=== PATIENT | female | born 1985 | race American Indian/Alaskan Native ===

== ENCOUNTER 2021-10-29 11:43 | Emergency (ER) | payer MEDICAID, OTHER ==
--- NOTE | 2021-10-29 15:03 | Emergency Department Report ---
ED Female HPI - General Chief complaint: Abdominal Pain Stated complaint: ABD PAIN Time Seen by Provider: 10/29/21 14:59 Source: patient Mode of arrival: Ambulatory Limitations: No Limitations - History of Present Illness Initial comments: 36-year-old -[place] female presents to the emergency room complaining of abdominal pain for 3 weeks. Patient states the pain is worse at night. She states that she works 16-hour days. She is 2 para 1. She complains of nausea and vomiting. States her last menstrual period was August 05, 2021. She denies any dysuria but does admit to urinary frequency and cloudy urine. She denies any urine odor. She complains of nausea and vomiting. She denies any vaginal bleeding vaginal discharge no diarrhea. States that she did a home test and is it positive. Patient states she had a history in the past with a positive home test and negative serum. MD Complaint: pelvic pain Onset/Timin -: week(s) Location: suprapubic Severity scale (0 -10): 4 Quality: cramping Consistency: intermittent Improves with: none Worsens with: none, other Are you Now?: Yes Last Menstrual Period: 08/05/21 EDC: 05/12/22 Associated Symptoms: nausea/vomiting, other (Urinary frequency). denies: vaginal discharge, vaginal bleeding, fever/chills - Related Data Sexually active: Yes : 2 Para: 1 Home Medications Medication Instructions Recorded Confirmed Last Taken Naproxen [Naprosyn TAB] 1 tab PO BID 02/09/14 10/29/21 02/09/14 07:40 Previous Rx's Medication Instructions Recorded Last Taken Type Cephalexin [Keflex] 500 mg PO BID #20 capsule 02/09/14 Unknown Rx HYDROcodone/APAP 5-325 [Colton 1 each PO Q6HR PRN #10 tablet 02/09/14 Unknown Rx 5/325 mg] Ibuprofen [Motrin 600 MG tab] 600 mg PO Q8H PRN #30 tablet 02/09/14 Unknown Rx Nitrofurantoin Patrick/M-Cryst 100 mg PO Q12HR 7 Days #14 capsule 10/29/21 Unknown Rx [Macrobid CAP] Vit-Fe Fumar-FA [ 1 tab PO QDAY #90 tablet 10/29/21 Unknown Rx Vitamin] Allergies Allergy/AdvReac Type Severity Reaction Status Date / Time No Known Allergies Allergy Verified 10/29/21 16:35 ED Review of Systems ROS: Stated complaint: ABD PAIN Other details as noted in HPI Comment: All other systems reviewed and negative ED Past Medical Hx - Past Medical History Previous Medical History?: No - Surgical History Past Surgical History?: No Additional Surgical History: hernia repair - Social History Smoking Status: Current Every Day Smoker Substance Use Type: Alcohol - Medications Home Medications: Home Medications Medication Instructions Recorded Confirmed Last Taken Type Cephalexin [Keflex] 500 mg PO BID #20 capsule 02/09/14 10/29/21 Unknown Rx HYDROcodone/APAP 5-325 [Colton 1 each PO Q6HR PRN #10 tablet 02/09/14 10/29/21 Unknown Rx 5/325 mg] Ibuprofen [Motrin 600 MG tab] 600 mg PO Q8H PRN #30 tablet 02/09/14 10/29/21 Unknown Rx Naproxen [Naprosyn TAB] 1 tab PO BID 02/09/14 10/29/21 02/09/14 07:40 History Nitrofurantoin Patrick/M-Cryst 100 mg PO Q12HR 7 Days #14 capsule 10/29/21 Unknown Rx [Macrobid CAP] Vit-Fe Fumar-FA [ 1 tab PO QDAY #90 tablet 10/29/21 Unknown Rx Vitamin] ED Physical Exam - General Limitations: No Limitations General appearance: alert, in no apparent distress - Head Head exam: Present: atraumatic, normocephalic - Eye Eye exam: Present: normal appearance - ENT ENT exam: Present: mucous membranes moist - Neck Neck exam: Present: normal inspection - Respiratory Respiratory exam: Present: normal lung sounds bilaterally. Absent: respiratory distress - Cardiovascular Cardiovascular Exam: Present: regular rate, normal rhythm. Absent: systolic murmur, diastolic murmur, rubs, gallop - GI/Abdominal GI/Abdominal exam: Present: soft, normal bowel sounds - Extremities Exam Extremities exam: Present: normal inspection - Back Exam Back exam: Present: normal inspection - Neurological Exam Neurological exam: Present: alert, oriented X3 - Psychiatric Psychiatric exam: Present: normal affect, normal mood - Skin Skin exam: Present: warm, dry, intact, normal color. Absent: rash ED Course Vital Signs 10/29/21 10/29/21 10/29/21 14:46 16:30 16:33 Temperature 98.4 F 97.9 F 97.7 F Pulse Rate 87 87 81 Respiratory 16 20 20 Rate Blood Pressure 131/79 Blood Pressure 124/76 131/85 [Left] O2 Sat by Pulse 97 99 99 Oximetry ED Medical Decision Making - Lab Data Result diagrams: 10/29/21 16:46 10/29/21 16:46 Lab Results 10/29/21 10/29/21 10/29/21 Range/Units 15:45 16:46 16:46 WBC 11.8 H (4.5-11.0) K/mm3 RBC 4.12 (3.65-5.03) M/mm3 Hgb 11.8 (10.1-14.3) gm/dl Hct 36.1 (30.3-42.9) % MCV 88 (79-97) fl MCH 29 (28-32) pg MCHC 33 (30-34) % RDW 15.5 H (13.2-15.2) % Plt Count 412 (140-440) K/mm3 Lymph % (Auto) 22.8 (13.4-35.0) % Patrick % (Auto) 5.7 (0.0-7.3) % Eos % (Auto) 3.0 (0.0-4.3) % Baso % (Auto) 0.2 (0.0-1.8) % Lymph # (Auto) 2.7 (1.2-5.4) K/mm3 Patrick # (Auto) 0.7 (0.0-0.8) K/mm3 Eos # (Auto) 0.3 (0.0-0.4) K/mm3 Baso # (Auto) 0.0 (0.0-0.1) K/mm3 Seg Neutrophils % 68.3 (40.0-70.0) % Seg Neutrophils # 8.0 H (1.8-7.7) K/mm3 Sodium 137 (137-145) mmol/L Potassium 3.8 (3.6-5.0) mmol/L Chloride 103.3 (98-107) mmol/L Carbon Dioxide 22 (22-30) mmol/L Anion Gap 16 mmol/L BUN 6 L (7-17) mg/dL Creatinine 0.4 L (0.6-1.2) mg/dL Estimated GFR > 60 ml/min BUN/Creatinine Ratio 15 % Glucose 87 (65-100) mg/dL Calcium 8.7 (8.4-10.2) mg/dL Total Bilirubin < 0.20 (0.1-1.2) mg/dL AST 9 (5-40) units/L ALT 5 L (7-56) units/L Alkaline Phosphatase 77 (35-129) units/L Total Protein 7.1 (6.3-8.2) g/dL Albumin 3.9 (3.9-5) g/dL Albumin/Globulin Ratio 1.2 % HCG, Quant (0-4) mIU/mL Urine Color Yellow (Yellow) Urine Turbidity Cloudy (Clear) Urine pH 6.0 (5.0-7.0) Ur Specific [place] 1.020 (1.003-1.030) Urine Protein <15 mg/dl (Negative) mg/dL Urine Glucose (UA) Neg (Negative) mg/dL Urine Ketones 20 (Negative) mg/dL Urine Blood Neg (Negative) Urine Nitrite Neg (Negative) Urine Bilirubin Neg (Negative) Urine Urobilinogen 2.0 (<2.0) mg/dL Ur Leukocyte Esterase Lg (Negative) Urine WBC (Auto) 48.0 H (0.0-6.0) /HPF Urine RBC (Auto) < 1.0 (0.0-6.0) /HPF U Epithel Cells (Auto) 211.0 H (0-13.0) /HPF Urine Bacteria (Auto) 2+ (Negative) /HPF Calcium Oxalate Crystal 1+ Urine Yeast (Budding) 3+ /HPF 10/29/21 Range/Units 16:46 WBC (4.5-11.0) K/mm3 RBC (3.65-5.03) M/mm3 Hgb (10.1-14.3) gm/dl Hct (30.3-42.9) % MCV (79-97) fl MCH (28-32) pg MCHC (30-34) % RDW (13.2-15.2) % Plt Count (140-440) K/mm3 Lymph % (Auto) (13.4-35.0) % Patrick % (Auto) (0.0-7.3) % Eos % (Auto) (0.0-4.3) % Baso % (Auto) (0.0-1.8) % Lymph # (Auto) (1.2-5.4) K/mm3 Patrick # (Auto) (0.0-0.8) K/mm3 Eos # (Auto) (0.0-0.4) K/mm3 Baso # (Auto) (0.0-0.1) K/mm3 Seg Neutrophils % (40.0-70.0) % Seg Neutrophils # (1.8-7.7) K/mm3 Sodium (137-145) mmol/L Potassium (3.6-5.0) mmol/L Chloride (98-107) mmol/L Carbon Dioxide (22-30) mmol/L Anion Gap mmol/L BUN (7-17) mg/dL Creatinine (0.6-1.2) mg/dL Estimated GFR ml/min BUN/Creatinine Ratio % Glucose (65-100) mg/dL Calcium (8.4-10.2) mg/dL Total Bilirubin (0.1-1.2) mg/dL AST (5-40) units/L ALT (7-56) units/L Alkaline Phosphatase (35-129) units/L Total Protein (6.3-8.2) g/dL Albumin (3.9-5) g/dL Albumin/Globulin Ratio % HCG, Quant 98651 H (0-4) mIU/mL Urine Color (Yellow) Urine Turbidity (Clear) Urine pH (5.0-7.0) Ur Specific [place] (1.003-1.030) Urine Protein (Negative) mg/dL Urine Glucose (UA) (Negative) mg/dL Urine Ketones (Negative) mg/dL Urine Blood (Negative) Urine Nitrite (Negative) Urine Bilirubin (Negative) Urine Urobilinogen (<2.0) mg/dL Ur Leukocyte Esterase (Negative) Urine WBC (Auto) (0.0-6.0) /HPF Urine RBC (Auto) (0.0-6.0) /HPF U Epithel Cells (Auto) (0-13.0) /HPF Urine Bacteria (Auto) (Negative) /HPF Calcium Oxalate Crystal Urine Yeast (Budding) /HPF - Radiology Data Radiology results: report reviewed [facility] [address] [place] [address] Ultrasound Report Signed Patient: BRIAN FORMAN MR#: [id number] : 1985 Acct:[id number] Age/Sex: 36 / F ADM Date: 10/29/21 Loc: ED Attending Dr: Ordering Physician: KUNAL HOOD Date of Service: 10/29/21 Procedure(s): US OB transvaginal Accession Number(s): [id number] cc: KUNAL HOOD Transvaginal and transabdominal ultrasound INDICATION: FINDINGS: Single live intrauterine . Gestational sac measures 5.8 mm measuring 11 weeks 6 days. Davey-rump length 5.25 mm measures 11.6 days. pole yolk sac and body and limb movements. Minimal free fluid. heart rate 1 61 bpm. Left ovary appears normal. Right ovary is not well seen. Uterus measures 7.3 x 7.3 x 10.0 cm. IMPRESSION: Single live intrauterine with ultrasound age 11 weeks 6 days Signer Name: Ramiro Castanon MD Signed: 10/29/2021 7:21 PM Workstation Name: [id number] Transcribed By: CW Dictated By: SEBASTIAN CASTANON MD Electronically Authenticated By: SEBASTIAN CASTANON MD Signed Date/Time: 10/29/211920 DD/ 19 TD/TT: - Medical Decision Making 36-year-old -[place] female presents to the emergency room complaining of abdominal pain for 3 weeks. Patient states the pain is worse at night. She states that she works 16-hour days. She is 2 para 1. She complains of nausea and vomiting. States her last menstrual period was August 05, 2021. She denies any dysuria but does admit to urinary frequency and cloudy urine. She denies any urine odor. She denies any vaginal bleeding vaginal discharge no diarrhea. States that she did a home test and is it positive. Patient states she had a history in the past with a positive home test and negative serum. Urinalysis CBC CMP hCG serum Critical care attestation.: If time is entered above; I have spent that time in minutes in the direct care of this critically ill patient, excluding procedure time. ED Disposition Clinical Impression: UTI (urinary tract infection) Qualifiers: Weeks of gestation: 12 weeks Qualified Code(s): Z3A.12 - 12 weeks gestation of Disposition: HOME / SELF CARE / HOMELESS Is pt being admited?: No Does the pt Need Aspirin: No Condition: Stable Instructions: Abdominal Pain (ED), and Urinary Tract Infection, Second Trimester of Additional Instructions: Ultrasound shows you are 11 weeks and 6 days . Also your urine shows that you have a urinary tract infection. I like for you to complete your antibiotics Tylenol only for pain. Start your vitamins and follow-up with the SERVICE DESK TECHNICIAN. Prescriptions: Nitrofurantoin Patrick/M-Cryst [Macrobid CAP] 100 mg PO Q12HR 7 Days #14 capsule Vit-Fe Fumar-FA [ Vitamin] 1 tab PO QDAY #90 tablet Referrals: [facility] [Primary Care Provider] - 3-5 Days [facility] [Provider Group] - 3-5 Days [facility] [Provider Group] - 3-5 Days [facility] [Provider Group] - 3-5 Days Forms: Work/School Release Form(ED) Time of Disposition: 19:29
[2021-10-29] MEDS ORDERED: ONDANSETRON 4 MG ODT TAB PO ONE (16:08)
[2021-10-29 16:21] LABS: Bacteria,Urine 2+ /HPF (Negative); Bilirubin,Urine NEG (Negative); Blood,Urine NEG (Negative); Calcium Oxalate Crystals,Urine 1+; Color,Urine Yellow (Yellow); Protein,Urine <15 mg/dL mg/dL (Negative)
[2021-10-29 16:37] LABS: RBC,Urine < 1.0 /HPF (0.0-6.0)
[2021-10-29 17:20] LABS: Basophils % (Auto) 0.2 % (0.0-1.8); Eosinophils # (Auto) 0.3 K/mm3 (0.0-0.4); Hematocrit 36.1 % (30.3-42.9); Hemoglobin 11.8 gm/dl (10.1-14.3); Lymphocytes # (Auto) 2.7 K/mm3 (1.2-5.4); Lymphocytes % (Auto) 22.8 % (13.4-35.0); Mean Corpuscular HGB Conc 33 % (30-34); Mean Corpuscular Volume 88 fl (79-97); Monocytes # (Auto) 0.7 K/mm3 (0.0-0.8); Monocytes % (Auto) 5.7 % (0.0-7.3); Platelet Count 412 K/mm3 (140-440); Red Blood Count 4.12 M/mm3 (3.65-5.03); Red Cell Distribution Width 15.5 % (13.2-15.2)
[2021-10-29 17:42] LABS: Alanine Aminotransferase 5 units/L (7-56); Albumin 3.9 g/dL (3.9-5); Blood Urea Nitrogen 6 mg/dL (7-17); Calcium 8.7 mg/dL (8.4-10.2); Hemolysis Index 0
[2021-10-29 17:43] LABS: BUN/Creatinine Ratio 15
--- NOTE | 2021-10-29 19:25 | Ultrasound Report ---
Transvaginal and transabdominal ultrasound INDICATION: FINDINGS: Single live intrauterine . Gestational sac measures 5.8 mm measuring 11 weeks 6 da ys. Ranson-rump length 5.25 mm measures 11.6 days. pole yolk sac and body and limb movements. Mi nimal free fluid. heart rate 1 61 bpm. Left ovary appears normal. Right ovary is not well seen. Uterus measures 7.3 x 7.3 x 10.0 cm. IMPRESSION: Single live intrauterine with ultrasound age 11 weeks 6 days Signer Name: Ramiro Castanon MD Signed: 10/29/2021 7:21 PM Workstation Name: [id number]
[2021-10-29 19:44] VITALS: BP 124/68
== END 2021-10-29 19:44 | disposition home or self-care (01) ==
LOC: ED 11:43
DX: O23.41 Unspecified infection of urinary tract in pregnancy, first trimester (principal); N39.0 Urinary tract infection, site not specified; F17.200 Nicotine dependence, unspecified, uncomplicated; O21.9 Vomiting of pregnancy, unspecified; Z3A.11 11 weeks gestation of pregnancy; Z72.89 Other problems related to lifestyle; Z79.899 Other long term (current) drug therapy
CPT/HCPCS: 36415; 76801; 76817; 80053; 81001; 84702; 85025; 87086; 99284; J3490; Q0162

== ENCOUNTER 2022-04-21 19:50 | Inpatient (IN) | payer MEDICAID, OTHER ==
[2022-04-21] MEDS ORDERED: AMPICILLIN/NS 2 GM/100 ML 2 GM/100 ML BAG IV ONE (21:01)
[2022-04-21] MEDS ORDERED: ACETAMINOPHEN 325 MG TAB PO PRN (21:01)
[2022-04-21] MEDS ORDERED: CARBOPROST TROMETHAMINE 250 MCG/1 ML INJ IM PRN (21:01)
[2022-04-21] MEDS ORDERED: miSOPROStol 200 MCG TAB PR PRN (21:01)
[2022-04-21] MEDS ORDERED: BUTORPHANOL 2 MG/1 ML INJ IV PRN (21:01)
[2022-04-21] MEDS ORDERED: OXYTOCIN 10 UNIT/1 ML INJ IM PRN (21:01)
[2022-04-21] MEDS ORDERED: ONDANSETRON 4 MG/2 ML INJ IV PRN (21:01)
[2022-04-21] MEDS ORDERED: METHYLERGONOVINE MALEATE 0.2 MG/ML VIAL IM PRN (21:01)
[2022-04-21] MEDS ORDERED: MINERAL OIL 30 ML ORAL LIQD PO PRN (21:01)
[2022-04-21] MEDS ORDERED: ePHEDrine SULFATE 50 MG/1 ML INJ IV PRN ×2 (21:01→22:08)
[2022-04-21] MEDS ORDERED: LIDOCAINE (2%) 20 MG/1 ML VIAL 20 ML MDV INFILTRATI ONE (21:01)
[2022-04-21] MEDS ORDERED: NALOXONE 0.4 MG/1 ML INJ IV PRN ×2 (21:01→22:08)
[2022-04-21] MEDS ORDERED: TERBUTALINE 1 MG/1 ML INJ SUB-Q PRN (21:01)
[2022-04-21] MEDS ORDERED: PROMETHAZINE 25 MG TAB PO PRN (21:01)
[2022-04-21] MEDS ORDERED: fentaNYL 100 MCG/2 ML INJ IV PRN (21:01)
[2022-04-21] MEDS ORDERED: LOPERAMIDE 2 MG CAP PO PRN (21:01)
[2022-04-21] MEDS ORDERED: LACTATED RINGERS 1,000 ML IV SCH (21:15)
--- NOTE | 2022-04-21 21:15 | History and Physical Report ---
History of Present Illness Date of examination: 04/21/22 Date of admission: 04/21/2022 Chief complaint: My water broke. History of present illness: Pt is a 36 y.o. @ 37 wks by EDC of 05/12/2022 who presented to triage with c/p SROM at 1900 for clear fluid. She has had limited care this . This EDC was given to her by the provider that she had one visit with. EDC is based off a third trimester u/s at her first visit. She has admitted that her first PNV was @ 35 wks and she was to [place] [facility] She does not know her GBS status. She had a visit scheduled on 04/24. States that she has had no complications this . Her last delivery was in 2008 ,was vaginal, with no complications. Past History Past Medical History: no pertinent history Past Surgical History: no surgical history Family/Genetic History: none Social history: single, other (Limited PNC. ) - Obstetrical History Expected Date of Delivery: 05/12/22 Actual Gestation: 37 Week(s) 0 Day(s) : 2 Para: 1 Hx # Term Pregnancies: 1 Number of Pregnancies: 0 Spontaneous Abortions: 0 Induced : 0 Number of Living Children: 0 #1 year: 2,009 Birthweight: 6 lb 14 oz Method of Delivery: Vaginal Gestational age at delivery: 39.2 Complications: none Medications and Allergies Allergies Allergy/AdvReac Type Severity Reaction Status Date / Time No Known Allergies Allergy Verified 10/29/21 16:35 Home Medications Medication Instructions Recorded Confirmed Last Taken Type Cephalexin [Keflex] 500 mg PO BID #20 capsule 02/09/14 10/29/21 Unknown Rx HYDROcodone/APAP 5-325 [Dafter 1 each PO Q6HR PRN #10 tablet 02/09/14 10/29/21 Unknown Rx 5/325 mg] Ibuprofen [Motrin 600 MG tab] 600 mg PO Q8H PRN #30 tablet 02/09/14 10/29/21 Unknown Rx Naproxen [Naprosyn TAB] 1 tab PO BID 02/09/14 10/29/21 02/09/14 07:40 History Nitrofurantoin Bartholomew/M-Cryst 100 mg PO Q12HR 7 Days #14 capsule 10/29/21 Unknown Rx [Macrobid CAP] Vit-Fe Fumar-FA [ 1 tab PO QDAY #90 tablet 10/29/21 Unknown Rx Vitamin] Active Meds: Active Medications Acetaminophen (Acetaminophen 325 Mg Tab) 650 mg PO Q4H PRN PRN Reason: Pain, Mild (1-3) Butorphanol Tartrate (Butorphanol 2 Mg/1 Ml Inj) 1 mg IV Q2H PRN PRN Reason: Pain, Moderate(4-6) LABOR PAIN Carboprost Tromethamine (Carboprost Tromethamine 250 Mcg/1 Ml Inj) 250 mcg IM ONCE PRN PRN Reason: Uterine Bleeding Ephedrine Sulfate (Ephedrine Sulfate 50 Mg/1 Ml Inj) 10 mg IV Q2M PRN PRN Reason: Hypotension Fentanyl (Fentanyl 100 Mcg/2 Ml Inj) 100 mcg IV Q2H PRN PRN Reason: Pain,Severe (7-10) LABOR PAIN Oxytocin/Sodium Chloride (Pitocin/Ns 30 Unit/500ml) 30 units in 500 mls @ 4 mls/hr IV TITR PAULA; Protocol Lactated Ringer's (Lactated Ringers) 1,000 mls @ 125 mls/hr IV DIRECT PAULA Oxytocin/Sodium Chloride (Pitocin/Ns 30 Unit/500ml) 30 units in 500 mls @ 40 mls/hr IV TITR PAULA; Protocol Ampicillin Sodium (Ampicillin/Ns 2 Gm/100 Ml) 2 gm in 100 mls @ 100 mls/hr IV ONCE ONE; Protocol Stop: 04/21/22 22:00 Loperamide HCl (Loperamide 2 Mg Cap) 2 mg PO ONCE PRN PRN Reason: give with Hemabate Methylergonovine Maleate (Methylergonovine Maleate 0.2 Mg/Ml Vial) 0.2 mg IM ONCE PRN PRN Reason: Uterine Bleeding Mineral Oil (Mineral Oil 30 Ml Oral Liqd) 30 ml PO QHS PRN PRN Reason: Constipation Misoprostol (Misoprostol 200 Mcg Tab) 800 mcg OK ONCE PRN PRN Reason: Uterine Bleeding Naloxone HCl (Naloxone 0.4 Mg/1 Ml Inj) 0.1 mg IV Q2MIN PRN PRN Reason: Res Rate </= 8 or 02 SAT < 92% Ondansetron HCl (Ondansetron 4 Mg/2 Ml Inj) 4 mg IV Q8H PRN PRN Reason: Nausea And Vomiting Oxytocin (Oxytocin 10 Unit/1 Ml Inj) 10 unit IM ONCE PRN PRN Reason: Uterine Bleeding Promethazine HCl (Promethazine 25 Mg Tab) 25 mg PO Q6H PRN PRN Reason: Nausea And Vomiting Terbutaline Sulfate (Terbutaline 1 Mg/1 Ml Inj) 0.25 mg SUB-Q ONCE PRN PRN Reason: Hyperstimulation/Hypertonicity Review of Systems All systems: negative - Vital Signs Vital signs: Vital Signs Pulse Pulse Ox 74 100 04/21/22 19:58 04/21/22 19:58 Temp Pulse Resp BP Pulse Ox 98.3 F 75 14 160/70 100 04/21/22 20:05 04/21/22 21:13 04/21/22 20:05 04/21/22 20:59 04/21/22 21:13 Elevated blood pressures noted. Range 140's-160's/70's. Pt denies LOPES, blurred vision, spots before her eyes, chest pain, upper abdominal pain, and shortness of breath. - Physical Exam Breasts: Positive: deferred Cardiovascular: Regular rate Lungs: Positive: Normal air movement Abdomen: Positive: normal appearance, soft Genitourinary (Female): Positive: normal external genitalia, normal perenium Vulva: both: normal Vagina: Positive: normal moisture Uterus: Positive: enlarged (Obese abdomen.) Extremities: Positive: normal - Obstetrical FHR: category 1 Uterine Contraction Monitor Mode: External Cervical Dilatation: 5 (Small amount of clear fluid seen on peripad underneath patient. ) Cervical Effacement Percentage: 90 station: 0 Uterine Contraction Pattern: Regular Uterine Tone Measurement Phase: Resting Uterine Contraction Intensity: Moderate Results Result Diagrams: 04/21/22 20:34 04/21/22 20:26 All other labs normal. labs ordered on admission. Assessment and Plan A: 36 y.o. @ 37 wks with with SROM, Limited PNC, elevated blood pressures on admission. - Patient Problems (1) Elevated blood pressure reading without diagnosis of hypertension Current Visit: Yes Status: Acute Plan to address problem: Consulted with Dr. Andino. Pre eclampsia labs ordered. Will continue to monitor blood pressures during admission. (2) SROM (spontaneous rupture of membranes) Current Visit: Yes Status: Acute Plan to address problem: Continue to monitor maternal temperature. Limit vaginal exams. (3) 37 or more weeks gestation of Current Visit: Yes Status: Acute Plan to address problem: Continuous EFM. (4) Limited care in third trimester Current Visit: Yes Status: Acute Plan to address problem: Admit to labor and delivery. Initiate IV. Draw labs. Send UDS. Augmentation of labor: Pitocin per protocol. Pain management: IV mediation and epidural, if and when patient desires. GBS: Unknown. - Ampicillin ordered.
[2022-04-21 21:31] LABS: Hematocrit 32.9 % (30.3-42.9); Hemoglobin 11.3 gm/dl (10.1-14.3); Mean Corpuscular HGB Conc 34 % (30-34); Mean Corpuscular Volume 86 fl (79-97); Platelet Count 376 K/mm3 (140-440); Red Blood Count 3.82 M/mm3 (3.65-5.03)
[2022-04-21 21:53] LABS: Uric Acid 3.8 mg/dL (3.5-7.6)
[2022-04-21 21:56] LABS: Alanine Aminotransferase < 5 units/L (7-56)
[2022-04-21] MEDS ORDERED: OXYTOCIN DRIP 30 UNITS/500 ML BAG IV SCH ×2 (22:00)
[2022-04-21 22:03] LABS: Hepatitis C Virus Antibody Non-Reactive (NonReactive)
[2022-04-21] MEDS ORDERED: LIDOCAINE MPF (2%) 20 MG/1 ML VIAL 5 ML ONE (22:05)
--- NOTE | 2022-04-21 22:28 | Anesthesia Consultation ---
Anesthesia Consult and Med Hx - Airway Anesthetic Teeth Evaluation: Poor ROM Head & Neck: Adequate Mental/Hyoid Distance: Adequate Mallampati Class: Class II Intubation Access Assessment: Probably Good - Pulmonary Exam CTA: Yes - Cardiac Exam Cardiac Exam: RRR - Pre-Operative Health Status ASA Pre-Surgery Classification: ASA2 Proposed Anesthetic Plan: Epidural - Pulmonary Hx Asthma: No - Cardiovascular System Hx Hypertension: No - Central Nervous System Hx Seizures: No Hx Psychiatric Problems: No - Endocrine Hx Renal Disease: No Hx Hypothyroidism: No Hx Hyperthyroidism: No - Hematic Hx Anemia: No Hx Sickle Cell Disease: No - Other Systems Hx Alcohol Use: No
--- NOTE | 2022-04-21 22:31 | Progress Note ---
Regional Anesthesia Block - Regional Anesthesia Block Start Time: 22:18 Stop Time: 22:22 Performed By:: BEAU MAZA Procedure: L34 prep and drape nsf, sterile dressing. CHANNING saline and air, 6cm, cath to 11 cm, neg test dose 1.5 ml lido 1.5% with epi, sterile dressing, enrique well. Loading dose 5 ml Lid
[2022-04-21] MEDS ORDERED: fentaNYL-BUPIV 2 MCG/ML-0.125% 200 MCG/100 ML BAG EPIDURAL SCH (23:00)
[2022-04-21 23:05] LABS: Bilirubin,Urine NEG (Negative); Blood,Urine NEG (Negative); Color,Urine Yellow (Yellow); Urobilinogen,Urine < 2.0 mg/dL (<2.0)
[2022-04-21 23:07] LABS: Mucus,Urine 3+ /HPF
[2022-04-21 23:13] LABS: Amphetamine Screen,Urine PRESUMPTIVE NEGATIVE; Benzodiazepines Screen,Urine PRESUMPTIVE NEGATIVE; Cannabinoid Screen,Urine PRESUMPTIVE POSITIVE; Cocaine Screen,Urine PRESUMPTIVE NEGATIVE; Methadone Screen,Urine PRESUMPTIVE NEGATIVE; Opiate Screen,Urine PRESUMPTIVE NEGATIVE
--- NOTE | 2022-04-21 23:27 | Procedure Note ---
OB Delivery Note - Delivery Date of Delivery: 04/21/22 Plate Worker: DANIELLE COREAS Estimated blood loss: 100cc - Vaginal Delivery presentation: vertex Delivery position: OA Intrapartum events: preeclampsia (Pt aware magnesium needed after delivery. ), other(please specify) (Limited care, + marijuana) Delivery induction: none Delivery monitor: external FHT, external uterine Route of delivery: Delivery placenta: spontaneous Delivery cord: 3 umbilical vessels Episiotomy: none Delivery laceration: none Anesthesia: epidural Delivery comments: of viable male infant. Infant to mother's abdomen for skin to skin. Cord cut and clamped. Infant handed to RN for evaluation at [facility]. Spontaneous delivery of placenta, intact, complete, 3 vessels noted. Placenta to pathology d/t pre eclampsia. Perineum and vaginal inspected, no lacerations noted. Fundus firm, minimal bleeding noted. QBL 100ml. Apgars 8,9. Infant weight, 6-2. Sponges and instruments counted with RN X2 and correct X2. Pt with diagnosis of pre eclampsia after delivery d/t Rubin Cather left in place. Magnesium infusion to be started @ 2gms with 4 gm bolus. RN taking care of patient aware. - Infant A at 1 minute: 8 at 5 minutes: 9 Infant Gender: Male ("[place]", 6-2)
--- NOTE | 2022-04-22 | Event Note ---
Date: 04/21/22 Pt with elevated blood pressures before and during delivery. Not pain related as patient was comfortable with epidural. Consulted with Dr. Andino. Will initiate magnesium infusion. Explained diagnosis of pre eclampsia, increased risk for seizures after delivery and why magnesium infusion needed. Patient verbalized understanding and agrees to magnesium infusion. Orders placed for magnesium infusion, Rubin Catheter placement, monitoring of blood pressures, and strict I&O's. RN taking care of patient and supervisor in charge aware of this plan of care.
[2022-04-22] MEDS ORDERED: WITCH HAZEL/ GLYCERIN PAD TP PRN (00:01)
[2022-04-22] MEDS ORDERED: miSOPROStol 100 MCG TAB PR PRN (00:01)
[2022-04-22] MEDS ORDERED: PROMETHAZINE 25 MG TAB PO PRN (00:01)
[2022-04-22] MEDS ORDERED: diphenhydrAMINE 25 MG CAP PO PRN (00:01)
[2022-04-22] MEDS ORDERED: oxyCODONE /ACETAMINOPHEN 5-325MG TAB PO PRN (00:01)
[2022-04-22] MEDS ORDERED: ACETAMINOPHEN 500 MG TAB PO PRN (00:01)
[2022-04-22] MEDS ORDERED: BENZOCAINE/MENTHOL 20/0.5% TOP SPRAY 56 GM TP PRN (00:01)
[2022-04-22] MEDS ORDERED: LANOLIN/ZINC/DIMETHICONE (LANSINOH) 7 GM TP PRN ×2 (00:01)
[2022-04-22] MEDS ORDERED: OXYTOCIN DRIP 30 UNITS/500 ML BAG IV SCH ×2 (00:01)
[2022-04-22] MEDS ORDERED: PROMETHAZINE 25 MG RECT SUPP PR PRN (00:01)
[2022-04-22] MEDS ORDERED: MAGNESIUM SULFATE 4 GM/100 ML BAG IV ONE (00:01)
[2022-04-22] MEDS ORDERED: ONDANSETRON 4 MG/2 ML INJ IV PRN (00:01)
[2022-04-22] MEDS ORDERED: MAGNESIUM HYDROXIDE (MOM) ORAL LIQD UDC PO PRN (00:01)
[2022-04-22] MEDS: LACTATED RINGERS 1,000 ML IV SCH ×2 (00:23→14:16)
[2022-04-22] MEDS: MAGNESIUM SULFATE 40GM/1000ML 40 GM/1,000 ML BAG IV SCH ×2 (00:56→20:41)
[2022-04-22] MEDS ORDERED: CALCIUM GLUCONATE 1000 MG/10 ML INJ IV ONE (01:01)
[2022-04-22 01:49] LABS: Basophils % (Manual) 0 % (0.0-1.8); Monocytes % (Manual) 0 % (0.0-7.3); Total Cells Counted 100
[2022-04-22 01:50] LABS: Platelet Estimate Consistent w Auto; RBC Morphology Normal
[2022-04-22] MEDS: IBUPROFEN 800 MG TAB PO SCH ×3 (02:05→18:38)
[2022-04-22] MEDS ORDERED: TETANUS,DIPH,PERTUSS(ACELL) VACCINE 0.5 ML SYRINGE IM ONE (06:00)
[2022-04-22] MEDS ORDERED: miSOPROStol 200 MCG TAB PR PRN (07:00)
[2022-04-22] MEDS: PRENATAL VIT27-FE FUMARATE-FOLIC ACID VIT TAB PO SCH (10:46)
[2022-04-22] MEDS: DOCUSATE SODIUM 100 MG CAP PO SCH ×2 (10:46→22:02)
--- NOTE | 2022-04-22 12:50 | Progress Note ---
Assessment and Plan - Patient Problems (1) 37 or more weeks gestation of Current Visit: Yes Status: Resolved (2) Elevated blood pressure reading without diagnosis of hypertension Current Visit: Yes Status: Acute (3) Limited care in third trimester Current Visit: Yes Status: Acute (4) Pre-eclampsia affecting puerperium Current Visit: Yes Status: Acute Plan to address problem: -Continue magnesium sulfate Continue labetalol p.o. (5) (normal spontaneous vaginal delivery) Current Visit: Yes Status: Acute Plan to address problem: Routine care. Plan for DC tomorrow if blood pressures normal after magnesium is discontinued. Subjective - Subjective Date of service: 04/22/22 Principal diagnosis: PPD#1 s/p 2) Pre E Interval history: Patient doing well without complaints today. Patient denies any headaches or blurry vision shortness of breath or any signs and symptoms of preeclampsia. Plan of care was discussed with patient including continue magnesium sulfate drip for approximately 24 hours and upon discontinuing the magnesium sulfate monitoring for blood pressure control. I discussed with patient her blood pressure medications may have to be adjusted depending upon if the blood pressures increase after magnesium is discontinued all questions were addressed and answered patient expressed understanding. Patient reports: appetite normal, voiding normally, pain well controlled, no dizzy ambulation [place]: doing well Objective - Vital Signs Latest vital signs: Vital Signs Temp Pulse Resp BP BP Pulse Ox Pulse Ox 04/22/22 12:45 85 100 04/22/22 12:40 84 100 04/22/22 12:35 83 100 04/22/22 12:30 83 100 04/22/22 12:25 80 100 04/22/22 12:23 88 146/78 04/22/22 12:20 89 99 04/22/22 12:15 79 100 04/22/22 12:10 78 100 04/22/22 12:05 86 100 04/22/22 12:00 98.2 F 80 18 100 04/22/22 11:55 80 95 04/22/22 11:53 75 134/75 04/22/22 11:50 81 100 04/22/22 11:45 80 100 04/22/22 11:41 85 94 04/22/22 11:40 76 100 04/22/22 11:35 79 100 04/22/22 11:30 90 100 04/22/22 11:25 81 100 04/22/22 11:23 86 132/74 04/22/22 11:20 86 100 04/22/22 11:15 87 100 04/22/22 11:10 84 100 04/22/22 11:05 91 H 100 04/22/22 11:00 87 100 04/22/22 10:55 82 100 04/22/22 10:53 81 143/79 04/22/22 10:50 89 100 04/22/22 10:46 86 147/83 04/22/22 10:45 87 100 04/22/22 10:40 93 H 100 04/22/22 10:35 84 100 04/22/22 10:30 85 100 04/22/22 10:25 85 100 04/22/22 10:23 85 147/83 04/22/22 10:20 87 100 04/22/22 10:15 92 H 100 04/22/22 10:10 86 100 04/22/22 10:05 88 100 04/22/22 10:00 89 100 04/22/22 09:55 84 100 04/22/22 09:53 82 142/101 04/22/22 09:50 85 100 04/22/22 09:45 91 H 100 04/22/22 09:40 80 100 04/22/22 09:35 87 100 04/22/22 09:30 91 H 100 04/22/22 09:25 86 100 04/22/22 09:23 82 146/82 04/22/22 09:20 84 100 04/22/22 09:15 78 100 04/22/22 09:10 83 100 04/22/22 09:05 86 100 04/22/22 09:00 80 100 04/22/22 08:55 80 100 04/22/22 08:53 80 157/76 04/22/22 08:50 90 100 04/22/22 08:45 90 100 04/22/22 08:40 80 100 04/22/22 08:35 81 100 04/22/22 08:30 91 H 100 100 04/22/22 08:29 98.0 F 18 04/22/22 08:25 84 100 04/22/22 08:23 83 126/66 04/22/22 08:20 82 100 04/22/22 08:15 80 100 04/22/22 08:10 88 99 04/22/22 08:05 85 100 04/22/22 08:00 78 100 04/22/22 07:55 81 100 04/22/22 07:53 72 147/77 04/22/22 07:50 75 100 04/22/22 07:45 84 100 04/22/22 07:40 82 100 04/22/22 07:35 81 100 04/22/22 07:30 84 100 04/22/22 07:25 85 100 04/22/22 07:23 79 137/72 04/22/22 07:20 79 100 04/22/22 07:15 82 100 04/22/22 07:10 85 100 04/22/22 07:05 85 100 04/22/22 07:00 84 100 04/22/22 06:57 89 87 04/22/22 06:55 81 100 04/22/22 06:53 76 141/86 04/22/22 06:50 75 100 04/22/22 06:45 82 100 04/22/22 06:40 88 100 04/22/22 06:35 84 100 04/22/22 06:30 82 99 04/22/22 06:29 91 H 88 04/22/22 06:25 78 100 04/22/22 06:20 77 100 04/22/22 06:15 76 100 04/22/22 06:12 74 150/85 04/22/22 06:10 79 100 04/22/22 06:05 76 100 04/22/22 06:02 72 91 04/22/22 06:00 75 100 04/22/22 05:57 74 145/92 04/22/22 05:55 71 100 04/22/22 05:50 76 100 04/22/22 05:45 88 100 04/22/22 05:42 83 140/82 04/22/22 05:40 86 100 04/22/22 05:35 89 99 04/22/22 05:32 97.6 F 17 04/22/22 05:30 83 100 04/22/22 05:27 86 141/78 04/22/22 05:25 81 100 04/22/22 05:20 77 100 04/22/22 05:15 81 100 04/22/22 05:12 82 143/75 04/22/22 05:10 85 100 04/22/22 05:05 80 100 06 05:00 83 100 04/22/22 04:57 86 132/71 04/22/22 04:55 84 100 04/22/22 04:50 95 H 100 04/22/22 04:45 83 100 04/22/22 04:42 83 126/75 04/22/22 04:40 85 99 06 04:35 76 100 04/22/22 04:30 92 H 100 04/22/22 04:27 90 131/78 04/22/22 04:25 90 99 04/22/22 04:20 90 99 04/22/22 04:15 84 100 04/22/22 04:12 94 H 134/66 04/22/22 04:10 87 99 04/22/22 04:05 82 100 04/22/22 04:00 87 100 04/22/22 03:57 88 139/71 04/22/22 03:55 88 100 04/22/22 03:50 89 100 04/22/22 03:45 88 100 04/22/22 03:42 88 133/65 04/22/22 03:40 91 H 100 04/22/22 03:35 86 137/65 100 04/22/22 03:30 87 99 04/22/22 03:27 88 167/73 04/22/22 03:25 86 100 04/22/22 03:20 84 100 04/22/22 03:15 84 100 04/22/22 03:12 83 136/63 04/22/22 03:10 81 99 04/22/22 03:05 85 99 04/22/22 03:00 82 99 04/22/22 02:57 79 134/70 04/22/22 02:55 86 100 04/22/22 02:50 86 100 04/22/22 02:45 79 100 04/22/22 02:42 85 129/67 04/22/22 02:40 72 100 04/22/22 02:35 83 100 04/22/22 02:30 77 100 06 02:27 75 129/68 04/22/22 02:25 78 100 04/22/22 02:20 72 99 04/22/22 02:15 80 100 04/22/22 02:12 75 140/72 04/22/22 02:10 80 100 04/22/22 02:05 79 100 04/22/22 02:00 79 100 04/22/22 01:57 75 141/66 04/22/22 01:55 77 100 04/22/22 01:50 81 100 04/22/22 01:45 79 100 04/22/22 01:42 74 149/77 04/22/22 01:40 87 100 04/22/22 01:35 77 100 04/22/22 01:30 91 H 100 04/22/22 01:28 89 87 04/22/22 01:27 76 140/68 04/22/22 01:25 84 100 04/22/22 01:20 84 100 04/22/22 01:15 81 100 04/22/22 01:13 81 137/82 04/22/22 01:10 75 100 04/22/22 01:05 88 100 04/22/22 01:00 80 100 04/22/22 00:55 75 145/73 100 04/22/22 00:52 77 143/74 04/22/22 00:51 75 17 143/74 100 04/22/22 00:50 78 100 04/22/22 00:45 82 19 141/72 141/72 100 04/22/22 00:41 80 151/75 04/22/22 00:40 76 18 151/75 100 04/22/22 00:35 72 100 04/22/22 00:33 62 149/70 04/22/22 00:30 65 100 04/22/22 00:25 98.2 F 75 18 152/78 100 04/22/22 00:23 69 152/78 04/22/22 00:22 59 L 93 04/22/22 00:20 64 100 04/22/22 00:15 72 100 04/22/22 00:13 64 154/80 04/22/22 00:10 66 93 04/22/22 00:07 83 77 L 04/22/22 00:05 78 100 04/22/22 00:03 73 163/105 04/22/22 00:00 62 100 04/21/22 23:55 83 99 04/21/22 23:53 94 H 143/76 04/21/22 23:52 77 76 L 04/21/22 23:50 73 100 04/21/22 23:46 83 85 04/21/22 23:45 72 100 04/21/22 23:43 77 139/72 04/21/22 23:40 77 100 04/21/22 23:35 79 100 04/21/22 23:34 87 94 04/21/22 23:33 69 140/72 04/21/22 23:30 73 100 04/21/22 23:25 73 100 04/21/22 23:22 70 134/66 04/21/22 23:20 65 100 04/21/22 23:19 61 137/64 0 L 04/21/22 23:17 75 140/75 04/21/22 23:14 72 100 04/21/22 23:13 64 155/66 04/21/22 23:11 68 151/62 04/21/22 23:08 78 100 04/21/22 23:07 95 H 174/137 04/21/22 23:03 82 100 04/21/22 22:58 68 153/72 100 04/21/22 22:55 95 H 140/100 04/21/22 22:53 68 100 04/21/22 22:52 67 146/67 0 L 04/21/22 22:49 67 147/67 04/21/22 22:48 71 100 04/21/22 22:46 71 161/70 04/21/22 22:43 67 160/72 100 04/21/22 22:41 89 152/85 04/21/22 22:38 70 100 04/21/22 22:37 73 151/74 70 L 04/21/22 22:34 78 148/77 04/21/22 22:33 79 100 04/21/22 22:31 93 H 156/84 04/21/22 22:28 72 155/73 100 04/21/22 22:25 68 158/74 93 04/21/22 22:23 96 H 100 04/21/22 22:22 75 161/98 04/21/22 22:19 88 148/94 04/21/22 22:18 95 H 100 04/21/22 22:13 102 H 100 04/21/22 22:09 69 93 04/21/22 22:08 76 100 04/21/22 22:03 81 100 04/21/22 21:58 65 100 04/21/22 21:56 69 183/81 04/21/22 21:54 64 81 L 04/21/22 21:53 62 100 04/21/22 21:48 70 89 04/21/22 21:43 68 100 04/21/22 21:38 69 100 04/21/22 21:33 71 100 04/21/22 21:28 73 100 04/21/22 21:23 65 100 04/21/22 21:20 76 133/76 04/21/22 21:19 83 77 L 04/21/22 21:18 64 100 04/21/22 21:13 75 100 04/21/22 21:12 72 87 04/21/22 21:08 77 98 04/21/22 21:03 72 83 L 04/21/22 20:59 79 160/70 04/21/22 20:58 71 95 04/21/22 20:57 70 93 04/21/22 20:53 71 100 04/21/22 20:48 83 97 04/21/22 20:46 96 H 85 04/21/22 20:43 103 H 100 04/21/22 20:38 66 100 04/21/22 20:33 81 100 04/21/22 20:28 82 100 04/21/22 20:23 87 100 04/21/22 20:18 80 142/75 99 04/21/22 20:17 70 163/77 04/21/22 20:13 69 100 04/21/22 20:08 88 99 04/21/22 20:05 98.3 F 14 100 04/21/22 20:03 103 H 99 04/21/22 19:58 74 100 Intake and Output 04/21/22 04/22/22 04/22/22 22:59 06:59 14:59 Output Total 1675 2700 Balance -1675 -2700 Output: Urine 1675 2700 Indwelling Catheter 1676 2200 Uretheral (Rubin) 500 Other: Total, Output Amount 525 350 Weight 112.037 kg Estimated Blood Loss 100 - Exam Breasts: Present: deferred Lungs: Present: Normal air movement Abdomen: Present: normal appearance, soft. Absent: distention, tenderness, guarding Uterus: Present: normal, firm. Absent: tenderness Extremities: Present: normal. Absent: tenderness, edema - Labs Labs: Abnormal lab results 04/21/22 04/21/22 04/21/22 Range/Units 20:26 20:34 22:51 WBC 17.8 H (4.5-11.0) K/mm3 Seg Neuts % (Manual) 73.0 H (40.0-70.0) % Seg Neutrophils # Man 13.0 H (1.8-7.7) K/mm3 Magnesium (1.7-2.3) mg/dL ALT < 5 L (7-56) units/L Lactate Dehydrogenase 211 H (91-180) units/L Urine WBC (Auto) 18.0 H (0.0-6.0) /HPF 04/22/22 Range/Units 05:23 WBC (4.5-11.0) K/mm3 Seg Neuts % (Manual) (40.0-70.0) % Seg Neutrophils # Man (1.8-7.7) K/mm3 Magnesium 4.20 H (1.7-2.3) mg/dL ALT (7-56) units/L Lactate Dehydrogenase (91-180) units/L Urine WBC (Auto) (0.0-6.0) /HPF
[2022-04-22 13:20] LABS: Hematocrit 30.8 % (30.3-42.9); Hemoglobin 10.4 gm/dl (10.1-14.3)
--- NOTE | 2022-04-22 14:10 | Post Anesthesia Evaluation ---
- Post Anesthesia Evaluation Patient Participated: Yes Airway Patent: Yes Stable Respiratory Function: Yes Nausea/Vomiting: No Temp > 96.8F: Yes Pain Manageable: Yes Adequeate Hydration: Yes Anesthesia Complications: No Block Receding Appropriately: Yes Patient on Ventilator: No
[2022-04-23] MEDS ORDERED: ZOLPIDEM 5 MG TAB PO ONE (00:15)
[2022-04-23] MEDS: IBUPROFEN 800 MG TAB PO SCH ×4 (05:24→17:31)
--- NOTE | 2022-04-23 07:46 | Progress Note ---
Assessment and Plan - Patient Problems (1) 37 or more weeks gestation of Current Visit: Yes Status: Resolved (2) Elevated blood pressure reading without diagnosis of hypertension Current Visit: Yes Status: Acute Plan to address problem: -con't labetalol 200bid -d/c this pm if blood pressures are stable (3) Limited care in third trimester Current Visit: Yes Status: Acute (4) Pre-eclampsia affecting puerperium Current Visit: Yes Status: Acute (5) (normal spontaneous vaginal delivery) Current Visit: Yes Status: Acute Subjective - Subjective Date of service: 04/23/22 Principal diagnosis: PPD#2 s/p 2) Pre E Interval history: Pt still w/o c/o. She did have some two elevated blood pressures in the sever ranges that provier was not called for with diastoloics >100s. Will monitor today off the Magnesium and see if bp meds needs to be adjusted. Patient reports: appetite normal, voiding normally, pain well controlled, no dizzy ambulation [place]: doing well, nursing well, bottle feeding Objective - Vital Signs Latest vital signs: Vital Signs Temp Pulse Resp BP Pulse Ox Pulse Ox 04/23/22 04:23 98.2 F 79 20 138/82 100 04/23/22 01:55 98 04/23/22 01:13 99 04/23/22 01:07 73 139/70 04/23/22 01:05 78 99 04/23/22 01:00 80 100 04/23/22 00:57 55 L 88 04/23/22 00:55 80 100 04/23/22 00:53 76 145/73 04/23/22 00:50 82 100 04/23/22 00:45 88 100 04/23/22 00:40 84 100 04/23/22 00:35 88 100 04/23/22 00:30 80 100 04/23/22 00:25 78 100 04/23/22 00:23 70 141/66 04/23/22 00:20 81 100 04/23/22 00:15 87 100 04/23/22 00:10 87 100 04/23/22 00:05 83 100 04/23/22 00:00 75 138/67 100 04/22/22 23:55 83 100 04/22/22 23:53 83 147/114 04/22/22 23:50 86 99 04/22/22 23:45 89 100 04/22/22 23:40 86 99 04/22/22 23:35 82 99 04/22/22 23:31 97.8 F 16 99 04/22/22 23:30 86 99 04/22/22 23:25 82 100 04/22/22 23:23 82 142/70 04/22/22 23:20 90 100 04/22/22 23:15 94 H 100 04/22/22 23:10 86 100 04/22/22 23:05 90 99 04/22/22 23:00 86 100 04/22/22 22:55 73 99 04/22/22 22:53 83 137/74 04/22/22 22:50 90 100 04/22/22 22:45 91 H 100 04/22/22 22:40 91 H 100 04/22/22 22:35 92 H 100 04/22/22 22:30 89 100 04/22/22 22:25 87 100 04/22/22 22:23 85 130/64 04/22/22 22:20 86 100 04/22/22 22:15 88 100 04/22/22 22:10 90 100 04/22/22 22:05 100 H 100 04/22/22 22:00 98 H 100 04/22/22 21:55 79 100 04/22/22 21:53 85 136/101 04/22/22 21:50 86 100 04/22/22 21:45 88 99 04/22/22 21:40 85 100 04/22/22 21:35 83 100 04/22/22 21:30 89 100 04/22/22 21:25 88 100 04/22/22 21:23 85 145/70 04/22/22 21:20 82 100 04/22/22 21:15 93 H 100 04/22/22 21:10 87 100 04/22/22 21:05 89 100 04/22/22 21:00 90 100 04/22/22 20:55 85 100 04/22/22 20:53 86 147/89 04/22/22 20:50 82 100 04/22/22 20:45 83 100 04/22/22 20:40 84 100 04/22/22 20:35 83 100 04/22/22 20:30 87 100 04/22/22 20:25 81 100 04/22/22 20:23 86 160/83 04/22/22 20:20 86 100 04/22/22 20:15 87 100 04/22/22 20:10 84 100 04/22/22 20:05 85 100 04/22/22 20:00 82 100 04/22/22 19:55 86 100 04/22/22 19:53 94 H 145/95 04/22/22 19:50 86 100 04/22/22 19:45 83 100 04/22/22 19:40 87 99 04/22/22 19:35 91 H 100 04/22/22 19:30 97.6 F 79 18 100 100 04/22/22 19:25 84 100 04/22/22 19:23 81 148/76 04/22/22 19:20 90 100 04/22/22 19:15 85 100 04/22/22 19:10 84 100 04/22/22 19:05 92 H 100 04/22/22 19:00 88 100 04/22/22 18:55 89 99 04/22/22 18:53 86 122/58 04/22/22 18:50 87 100 04/22/22 18:45 81 99 04/22/22 18:40 78 100 04/22/22 18:35 81 100 04/22/22 18:30 85 100 04/22/22 18:25 83 99 04/22/22 18:23 83 131/64 04/22/22 18:20 88 100 04/22/22 18:15 89 100 04/22/22 18:10 84 100 04/22/22 18:05 89 100 04/22/22 18:00 85 98 04/22/22 17:55 89 99 04/22/22 17:53 84 118/60 04/22/22 17:50 85 100 04/22/22 17:45 85 100 04/22/22 17:40 90 100 04/22/22 17:35 97 H 100 04/22/22 17:30 89 100 04/22/22 17:27 97 H 91 04/22/22 17:25 91 H 100 04/22/22 17:23 87 129/66 04/22/22 17:20 93 H 100 04/22/22 17:15 86 100 04/22/22 17:10 96 H 100 06/25/22 17:05 86 100 04/22/22 17:00 94 H 100 04/22/22 16:55 93 H 100 04/22/22 16:53 87 128/61 04/22/22 16:50 92 H 100 04/22/22 16:45 87 100 04/22/22 16:40 107 H 100 04/22/22 16:35 88 100 04/22/22 16:30 97.4 F L 91 H 18 100 04/22/22 16:25 91 H 100 04/22/22 16:23 91 H 152/70 04/22/22 16:20 90 100 04/22/22 16:15 100 H 100 04/22/22 16:10 96 H 100 04/22/22 16:05 94 H 100 04/22/22 16:00 91 H 100 04/22/22 15:58 92 04/22/22 15:55 98 H 100 04/22/22 15:54 97 H 135/60 04/22/22 15:50 94 H 100 04/22/22 15:45 95 H 100 04/22/22 15:40 97 H 100 04/22/22 15:35 104 H 99 04/22/22 15:30 97 H 100 04/22/22 15:25 101 H 100 04/22/22 15:23 99 H 133/74 04/22/22 15:20 101 H 100 04/22/22 15:15 99 H 100 04/22/22 15:10 96 H 100 04/22/22 15:05 100 H 100 04/22/22 15:00 103 H 100 04/22/22 14:55 97 H 100 04/22/22 14:53 100 H 137/74 04/22/22 14:50 96 H 100 04/22/22 14:45 108 H 100 04/22/22 14:40 97 H 100 04/22/22 14:35 105 H 100 04/22/22 14:30 104 H 100 04/22/22 14:25 104 H 100 04/22/22 14:23 105 H 130/82 04/22/22 14:20 104 H 98 04/22/22 14:15 102 H 99 04/22/22 14:10 93 H 100 04/22/22 14:05 91 H 100 04/22/22 14:00 97 H 100 04/22/22 13:55 91 H 100 04/22/22 13:53 90 125/60 04/22/22 13:50 92 H 100 04/22/22 13:45 92 H 100 04/22/22 13:40 90 100 04/22/22 13:35 86 100 04/22/22 13:30 90 100 04/22/22 13:25 89 100 04/22/22 13:23 87 139/75 04/22/22 13:20 87 100 04/22/22 13:15 85 100 04/22/22 13:10 87 100 04/22/22 13:05 90 100 04/22/22 13:00 83 100 04/22/22 12:55 91 H 100 04/22/22 12:53 82 156/70 04/22/22 12:50 91 H 100 04/22/22 12:49 95 H 93 04/22/22 12:45 85 100 04/22/22 12:40 84 100 04/22/22 12:35 83 100 04/22/22 12:30 83 100 04/22/22 12:25 80 100 04/22/22 12:23 88 146/78 04/22/22 12:20 89 99 04/22/22 12:15 79 100 04/22/22 12:10 78 100 04/22/22 12:05 86 100 04/22/22 12:00 98.2 F 80 18 100 04/22/22 11:55 80 95 04/22/22 11:53 75 134/75 04/22/22 11:50 81 100 04/22/22 11:45 80 100 04/22/22 11:41 85 94 04/22/22 11:40 76 100 04/22/22 11:35 79 100 04/22/22 11:30 90 100 04/22/22 11:25 81 100 06 11:23 86 132/74 04/22/22 11:20 86 100 04/22/22 11:15 87 100 04/22/22 11:10 84 100 04/22/22 11:05 91 H 100 04/22/22 11:00 87 100 04/22/22 10:55 82 100 04/22/22 10:53 81 143/79 04/22/22 10:50 89 100 04/22/22 10:46 86 147/83 04/22/22 10:45 87 100 04/22/22 10:40 93 H 100 04/22/22 10:35 84 100 04/22/22 10:30 85 100 04/22/22 10:25 85 100 04/22/22 10:23 85 147/83 04/22/22 10:20 87 100 04/22/22 10:15 92 H 100 04/22/22 10:10 86 100 04/22/22 10:05 88 100 04/22/22 10:00 89 100 04/22/22 09:55 84 100 04/22/22 09:53 82 142/101 04/22/22 09:50 85 100 04/22/22 09:45 91 H 100 04/22/22 09:40 80 100 04/22/22 09:35 87 100 04/22/22 09:30 91 H 100 04/22/22 09:25 86 100 04/22/22 09:23 82 146/82 04/22/22 09:20 84 100 04/22/22 09:15 78 100 04/22/22 09:10 83 100 04/22/22 09:05 86 100 04/22/22 09:00 80 100 04/22/22 08:55 80 100 04/22/22 08:53 80 157/76 04/22/22 08:50 90 100 04/22/22 08:45 90 100 04/22/22 08:40 80 100 04/22/22 08:35 81 100 04/22/22 08:30 91 H 100 100 04/22/22 08:29 98.0 F 18 04/22/22 08:25 84 100 04/22/22 08:23 83 126/66 04/22/22 08:20 82 100 04/22/22 08:15 80 100 04/22/22 08:10 88 99 04/22/22 08:05 85 100 04/22/22 08:00 78 100 04/22/22 07:55 81 100 04/22/22 07:53 72 147/77 04/22/22 07:50 75 100 04/22/22 07:45 84 100 Intake and Output 06/25/22 06/26/22 06/26/22 22:59 06:59 14:59 Intake Total 2262.5 855 Output Total 1800 1150 Balance 462.5 -295 Intake: IV 987.5 MAGNESIUM SULFATE 40GM/ 987.5 1000ML 40 gm In 1,000 ml @ 2 GM/HR 50 mls/hr IV DIRECT PAULA Rx#:[id number] Oral 900 490 Intake, Free Water 240 Other 375 125 Output: Urine 1800 1150 Indwelling Catheter 1800 850 Void 300 Other: Total, Intake Amount 225 360 Total, Output Amount 200 300 - Exam Lungs: Present: Normal air movement Abdomen: Present: normal appearance, soft. Absent: distention, tenderness, guarding Uterus: Present: normal, firm, fundal height below umbilicus. Absent: bogginess, tenderness Extremities: Present: normal. Absent: tenderness, edema Deep Tendon Reflex Grade: Normal +2 - Labs Labs: Abnormal lab results 04/22/22 04/22/22 Range/Units 11:55 18:06 Magnesium 5.00 H 5.40 H (1.7-2.3) mg/dL
--- NOTE | 2022-04-23 08:31 | Discharge Summary ---
Providers - Providers Date of Admission: 04/21/22 21:01 Date of discharge: 04/23/22 (if blood pressures are normal) Attending physician: DESIREE CANTU 04/22/22 00:01 Consult to Case Management [CONS] Routine Services Needed at Discharge: Lead Driver Additional Physician Instructions: Limited care and positive marijuana on UDS this admission. 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 Immediate patient was noted to have persistently elevated blood pressures. Patient did receive magnesium sulfate for approximately 23 hours. Patient was started on labetalol 200 mg p.o. twice daily. Blood pressures did normalize. Patient will be monitored for the balance of this day. If blood pressures remain in normal to mild range, will discharge patient home this afternoon. Patient is to follow-up with her [facility] provider. However if she is not able to get an appointment with that provider she is to see our providers at my [facility]. Patient states she does have an appointment with Dr. Valorie Mason on tomorrow at 10 AM Condition at discharge: Good Disposition: 01 HOME / SELF CARE / HOMELESS - Discharge Diagnoses (1) 37 or more weeks gestation of Status: Resolved (2) Elevated blood pressure reading without diagnosis of hypertension Status: Acute (3) Limited care in third trimester Status: Acute (4) Pre-eclampsia affecting puerperium Status: Acute (5) (normal spontaneous vaginal delivery) Status: Acute Plan - Discharge Medications Prescriptions: Lidocain2.5%/Prilocai2.5% [Emla] 1 applic TP ONCE #1 tube labetaloL [Labetalol 200mg TAB] 200 mg PO BID #60 Ibuprofen [Motrin] 800 mg PO Q8HR PRN #20 tablet PRN Reason: Pain, Moderate (4-6) - Provider Discharge Summary Activity: routine, no sex for 6 weeks, no heavy lifting 4 weeks, no strenuous exercise Diet: routine Instructions: routine Additional instructions: [] Smoking cessation referral if applicable(refer to patient education folder for contact #) [] Refer to [facility]'s [facility] Booklet Call your doctor immediately for: * Fever > 100.5 * Heavy vaginal bleeding ( >1 pad per hour) * Severe persistent headache * Shortness of breath * Reddened, hot, painful area to leg or breast * Drainage or odor from incision. * Keep incision clean and dry at all times and follow doctor's instructions regarding bathing/showering - Follow up plan Follow up: PRIMARY CARE,MD [Primary Care Provider] - 7 Days
[2022-04-23] MEDS: DOCUSATE SODIUM 100 MG CAP PO SCH ×2 (10:00→22:05)
[2022-04-23] MEDS: PRENATAL VIT27-FE FUMARATE-FOLIC ACID VIT TAB PO SCH (10:00)
--- NOTE | 2022-04-23 17:03 | Event Note ---
Date: 04/23/22 D/c held due to infant needing complete treatment due to unknown gbs status.
[2022-04-24] MEDS: IBUPROFEN 800 MG TAB PO SCH ×3 (06:20→18:12)
--- NOTE | 2022-04-24 08:48 | Event Note ---
Date: 04/24/22 Patient remains in stable condition. No complaints at this time. Discharge order remains in place and patient to be discharged once cleared.
[2022-04-24] MEDS: PRENATAL VIT27-FE FUMARATE-FOLIC ACID VIT TAB PO SCH (10:02)
[2022-04-24] MEDS: DOCUSATE SODIUM 100 MG CAP PO SCH ×2 (10:02→21:16)
[2022-04-24] MEDS: BUTALB/ACETAMINOPHEN/CAFFEINE TAB PO PRN ×2 (16:42→21:16)
[2022-04-25] MEDS: PRENATAL VIT27-FE FUMARATE-FOLIC ACID VIT TAB PO SCH (09:14)
[2022-04-25] MEDS: DOCUSATE SODIUM 100 MG CAP PO SCH (09:14)
[2022-04-25 09:18] VITALS: BP 146/67
== END 2022-04-25 12:35 | disposition home or self-care (01) | DRG 807 ==
LOC: TRG 19:50 → LD 19:51 → TRG 21:01 → LD 21:01 → OBSVTOIN 21:01 → OB 04-23 01:32
PROVIDERS: ADMIT Obstetrics & Gynecology; ATTEND Obstetrics & Gynecology
PROC: 10E0XZZ Delivery of Products of Conception, External Approach (ICD-10-PCS; principal; 2022-04-21)
PROC: 3E0R3BZ Introduction of Anesthetic Agent into Spinal Canal, Percutaneous Approach (ICD-10-PCS; 2022-04-21)
PROC: 00HU33Z Insertion of Infusion Device into Spinal Canal, Percutaneous Approach (ICD-10-PCS; 2022-04-21)
PROC: 3E0234Z Introduction of Serum, Toxoid and Vaccine into Muscle, Percutaneous Approach (ICD-10-PCS; 2022-04-22)
DX: O14.94 Unspecified pre-eclampsia, complicating childbirth (principal); Z37.0 Single live birth; Z3A.37 37 weeks gestation of pregnancy; Z20.822 Contact with and (suspected) exposure to COVID-19; Z23 Encounter for immunization
CPT/HCPCS: 36415; 59025; 80307; 81001; 82565; 83615; 83735; 84450; 84460; 84550; 85007; 85014; 85018; 85025; 86592; 86706; 86762; 86803; 86850; 86900; 86901; 87086; 87806; 96360; G0378; J0290; J3010; J3475; J7120; U0003